=== PATIENT | female | born 1995 | race African-American/Black ===

== ENCOUNTER 2019-12-03 09:50 | Inpatient (IN) | payer MEDICAID ==
[2019-12-03 10:52] LABS: APPEARANCE,URINE CLOUDY; BILIRUBIN,URINE NEGATIVE (NEGATIVE); COLOR,URINE YELLOW; GLUCOSE, URINE NEGATIVE (NEGATIVE); KETONES,URINE NEGATIVE (NEGATIVE); LEUKOCYTE ESTERASE,URINE MODERATE (NEGATIVE); NITRITE,URINE NEGATIVE (NEGATIVE); PROTEIN,URINE 30 mg/dL (NEGATIVE); URINE SPECIFIC GRAVITY 1.021; UROBILINOGEN,URINE NEGATIVE mg/dL (<2.0)
[2019-12-03 11:21] LABS: URINE AMPHETAMINES SCREEN NEGATIVE; URINE BARBITURATES SCREEN NEGATIVE; URINE BENZODIAZEPINES SCREEN NEGATIVE; URINE COCAINE SCREEN NEGATIVE; URINE MARIJUANA (THC) SCREEN NEGATIVE; URINE METHADONE SCREEN NEGATIVE; URINE PHENCYCLIDINE SCREEN NEGATIVE
--- NOTE | 2019-12-03 12:45 | Admission Physical ---
Datetime Report Generated by CPN: 12/03/2019 12:45 CURRENT ADMISSION Chief Complaint: Uterine Contractions Indication for Induction: Not Applicable Admit Impression : Term, Intrauterine ; Active Labor Admit Plan: Admit to Unit; Initiate Labor Protocol ALLERGIES Medication Allergies: Yes Medication Allergies: Penicillins (12/03/2019) Latex: No Latex Allergies OBSTETRICAL HISTORY EDC: 12/07/2019 00:00 : 2 Para: 1 Term: 1 : 0 SAB: 0 IAB: 0 Ectopic: 0 Livin Cesareans: 0 VBACs: 0 Multiple Births: 0 Gestational Diabetes: No Rh Sensitization: No Incompetent Cervix: No BECKY: No Infertility: No ART Treatment: No Uterine Anomaly: No IUGR: No Hx Previous C/S: No Macrosomia: No Hx Loss/Stillborn: No PIH: No Hx : No Placenta Previa/Abruption: No Depression/PP Depression: No PTL/PROM: No Post Hemorrhage: No Current Procedures: Ultrasound Obstetrical History Comments: 08/2018 , no epdiural, girl G2- Current SEE RECORDS Alcohol: No Marijuana : No Cocaine: No Other Illicit Drugs: No Cigarettes: Never Smoker. [id number] MEDICAL HISTORY Diabetes: No Blood Transfusion: No Pulmonary Disease (Asthma, TB): No Breast Disease: No Hypertension: No Fiberglass Technician Surgery: No Heart Disease: No Hosp/Surgery: Yes Autoimmune Disorder: No Anesthetic Complications: No Kidney Disease: No Abnormal Pap Smear: Yes Neuro/Epilepsy: No Psychiatric Disorders: No Other Medical Diseases: No Hepatitis/Liver Disease: No Significant Family History: No Varicosities/Phlebitis: No Trauma/Violence : No Thyroid Dysfunction: No Medical History Comments: Was suppose to go back for a 2nd pap smear but got and never got tested again. INFECTIOUS HISTORY Gonorrhea: No Genital Herpes: No Chlamydia: No Tuberculosis: No Syphilis: No Hepatitis: No HIV/AIDS Exposure: No Rash or Viral Illness: No HPV: No PHYSICAL EXAM General: Normal HEENT: Normal Neurologic: Normal Thyroid: Deferred Heart: Normal Lungs: Normal Breast: Deferred Back: Normal Abdomen: Normal Genitourinary Exam: Deferred Extremities: Normal DTRs: Normal Pelvic Type: Adequate Vital Signs: Reviewed VAGINAL EXAM Dilatation: 5 Effacement: 100 Station: -1 MEMBRANES Membranes: Intact FETUS A EGA: 39.3 Monitoring: External US FHR- Baseline: 130 Variability: Moderate 6-25bpm Accelerations: 15X15 FHR Category: Category I Presentation: Vertex Admit Comment: Closely-spaced pregnancies records on chart Plan admit, pain management. Anticipate Proven for 7lbs 10 oz PLANS FOR LABOR AND DELIVERY Labor and Delivery: None Pain Management: None Feeding Preference: Breast Benefit of Breast Feed Discussed: Yes Circumcision: Yes INFORMED CONSENT Assignment: Corin Fisher MD Signature: with User ID: [email or web address] : with User ID: [email or web address] : I personally evaluated and examined the patient in conjunction with the MLP and agree with the assessment, treatment plan and disposition.
[2019-12-03] MEDS ORDERED: RINGERS SOLUTION,LACTATED 1,000 ML IV ONE (12:58)
[2019-12-03] MEDS ORDERED: RINGERS SOLUTION,LACTATED 1,000 ML IV PRN (12:58)
[2019-12-03] MEDS ORDERED: OXYTOCIN/0.9 % SODIUM CHLORIDE 30 UNIT/500 ML RTUINJ ONE (13:24)
[2019-12-03] MEDS ORDERED: LIDOCAINE 1% INJ-PF (10 MG/ML) 30 ML SDV ONE (13:24)
[2019-12-03] MEDS ORDERED: OXYTOCIN 10 UNIT/ML VIAL ONE (13:24)
[2019-12-03] MEDS ORDERED: MISOPROSTOL 0.2 MG TABLET ONE (13:24)
[2019-12-03 14:10] LABS: ABSOLUTE LYMPHOCYTES (AUTO) 0.8 10^3/uL (0.5-4.7); ABSOLUTE MONOCYTES (AUTO) 0.4 10^3/uL (0.1-1.4); ABSOLUTE NEUT (AUTO) 13.2 10^3/uL (1.7-8.2); BASOPHILS % (AUTO) 0.2 % (0-2); HEMATOCRIT 38.7 % (36.0-47.0); HEMOGLOBIN 13.2 g/dL (12.0-15.5); LYMPHOCYTES % (AUTO) 5.7 % (13-45); MEAN CORPUSCULAR HEMOGLOBIN 29.5 pg (27.0-33.4); MEAN CORPUSCULAR HGB CONC 34.1 g/dL (32.0-36.0); MEAN CORPUSCULAR VOLUME 86 fl (80-97); MONOCYTES % (AUTO) 2.9 % (3-13); PLATELET COUNT 152 10^3/uL (150-450); RED BLOOD COUNT 4.48 10^6/uL (3.72-5.28); RED CELL DISTRIBUTION WIDTH 14.6 % (11.5-14.0); SEGMENTED NEUTROPHILS % (AUTO) 91.2 % (42-78); TOTAL CELLS COUNTED % (AUTO) 100 %; WHITE BLOOD COUNT 14.5 10^3/uL (4.0-10.5)
[2019-12-03] MEDS ORDERED: DIPHENHYDRAMINE HCL 25 MG CAPSULE PO PRN (18:49)
[2019-12-03] MEDS ORDERED: DIBUCAINE 1% OINTMENT 28 GM TP PRN (18:49)
[2019-12-03] MEDS ORDERED: MEASLES,MUMPS&RUBELLA VACC/PF 0.5 ML VIAL SUBCUT PRN (18:49)
[2019-12-03] MEDS ORDERED: ACETAMINOPHEN 650 MG SUPP.RECT PR PRN (18:49)
[2019-12-03] MEDS ORDERED: ZOLPIDEM TARTRATE 5 MG TABLET PO PRN (18:49)
[2019-12-03] MEDS ORDERED: PROMETHAZINE HCL 25 MG SUPP.RECT PR PRN (18:49)
[2019-12-03] MEDS ORDERED: PSEUDOEPHEDRINE HCL 30 MG TABLET PO PRN (18:49)
[2019-12-03] MEDS ORDERED: PROMETHAZINE HCL INJ 25 MG/1 ML VIAL IV PRN (18:49)
[2019-12-03] MEDS ORDERED: DIPH/PERTUSS(ACELL)/TETANUS VAC/PF 0.5 ML SYR (>=10YO) IM PRN (18:49)
[2019-12-03] MEDS ORDERED: MAGNESIUM HYDROXIDE SUSP 30 ML UDCUP PO PRN (18:49)
[2019-12-03] MEDS ORDERED: GLYCERIN/WITCH HAZEL LEAF 1 EACH MED..WIPE TP PRN (18:49)
[2019-12-03] MEDS ORDERED: ACETAMINOPHEN WITH CODEINE #3 TABLET PO PRN ×2 (18:49)
[2019-12-03] MEDS ORDERED: NA PHOS,M-B/NA PHOS,DI-BA (ADULT) 133 ML ENEMA PR PRN (18:49)
[2019-12-03] MEDS ORDERED: PROMETHAZINE HCL 25 MG TABLET PO PRN (18:49)
[2019-12-03] MEDS ORDERED: OXYTOCIN/0.9 % SODIUM CHLORIDE 30 UNIT/500 ML RTUINJ IV PRN (18:49)
[2019-12-03] MEDS ORDERED: BENZOCAINE/MENTHOL AEROSOL SPRAY 56 ML TOP PRN (18:49)
[2019-12-03] MEDS ORDERED: METHYLERGONOVINE MALEATE INJ/PF 0.2 MG/1 ML AMPULE IM ONE (19:05)
[2019-12-03] MEDS ORDERED: METHYLERGONOVINE MALEATE INJ/PF 0.2 MG/1 ML AMPULE ONE (19:14)
--- NOTE | 2019-12-03 21:15 | Delivery Summary ---
Del Sum A-C Datetime Report Generated by CPN: 12/03/2019 21:15 DELIVERY PERSONNEL DELIVERY PERSONNEL: [id number] Delivery Doctor:: Soo Vasquez CNM Nurse Edge Bonder Certified:: Soo Vasquez CNM Labor and Delivery Nurse:: Irma Khanna RNmedical surgery nurse Nurse:: CELESTINO Tate Switchboard Wirer/DAILY RELEASE AND DUPE PRINTER: [facility], ENGINE TURNER MATERNAL INFORMATION Delivery Anesthesia: None Medications After Delivery: Pitocin Bolus-Please Comment; Pitocin 30 Units in 500ml NS/D5W Delivery QBL: 200 Maternal Complications: None Provider Comments: Called to room 1-patient complete and at +2. Patient positioned with stirrups and instructed to push with contractions. of live male in vertex CRISTOPHER at 1825. Compound right hand reduced. Nuchal cord x1 reduced. Spontaneous respirations and cry. 3 vessel cord. Apgars 8-9. Cord clamped x2 after 2min delay, then cut by FOB. Placenta, membranes, and cord expelled at 1831, Garcia presentation, intact. Perineal tear repaired as above. Patient tolerated procedure well. LABOR SUMMARY EDC: 12/07/2019 00:00 No. Babies in Womb: 1 Attempted: No Labor Anesthesia: None LABOR INFORMATION Reason for Induction: Not Applicable Onset of Labor: 12/03/2019 14:23 Complete Dilatation: 12/03/2019 18:16 Oxytocin: N/A Group B Beta Strep: negative Steroids Given: None Reason Steroids Not Administered: Not Applicable MEMBRANES Membranes Rupture Method: Artificial Rupture of Membranes: 12/03/2019 16:33 Length of Rupture (hr): 1.87 Amniotic Fluid Color: Clear Amniotic Fluid Amount: Scant Amniotic Fluid Odor: Normal STAGES OF LABOR Stage 1 hr: 3 Stage 1 min: 53 Stage 2 hr: 0 Stage 2 min: 9 Stage 3 hr: 0 Stage 3 min: 6 Total Time in Labor hr: 4 Total Time in Labor min: 8 VAGINAL DELIVERY Episiotomy: None Laceration #1: Perineal Laceration Extension #1: First Degree Laceration Repair: Yes Laceration Repair Note: Single interrupted stitch done in perineal tear with 3-0 Chromic Sponge Count Correct: N/A Sharps Count Correct: Yes CSECTION DELIVERY Primary Indication: N/A Secondary Indication: N/A CSection Incidence: N/A Labor: N/A Elective: N/A CSection Incision: N/A BABY A INFORMATION Delivery Date/Time: 12/03/2019 18:25 Method of Delivery: Vaginal Nurse Controlled Delivery: No Born in Route : No : N/A Forceps: N/A Vacuum Extraction: N/A Shoulder Dystocia : No PRESENTATION/POSITION BABY A Presentation: Cephalic Cephalic Presentation: Vertex Vertex Position: Right Occipital Anterior Breech Presentation: N/A PLACENTA INFORMATION BABY A Placenta Delivery Time : 12/03/2019 18:31 Placenta Method of Delivery: Spontaneous Placenta Status: Delivered SCORES BABY A Heart Rate 1 min: >100 bpm Resp Effort 1 min: Good Cry Reflex Irritability 1 min: Cough or Sneeze or Pulls Away Muscle Tone 1 min: Active Motion Color 1 min: Blue/Pale Resuscitation Effort 1 min: Tactile Stimulation SCORE 1 MIN: 8 Heart Rate 5 min: >100 bpm Resp Effort 5 min: Good Cry Reflex Irritability 5 min: Cough or Sneeze or Pulls Away Muscle Tone 5 min: Active Motion Color 5 min: Body Selby, Extremities Blue Resuscitation Effort 5 min: N/A SCORE 5 MIN: 9 Resuscitation Effort 10 min: N/A INFORMATION BABY A Gestational Age at Delivery: 38.3 Gestational Status: Early Term- 37- 38.6 Weeks Outcome : Liveborn Infant Condition : Stable Sex: Male IDENTIFICATION BABY A Verification Date/Time: 12/03/2019 19:24 ID Band Number: [id number] Mother's Name Verified: Yes RN Verifying Infant: AJocelyn Khanna RN Additional Verifying Personnel: Marcello Lane RN WEIGHT/LENGTH BABY A Birthweight (gm): 3460 Weight (lb): 7 Weight (oz): 10 Length (in): 21.00 Length (cm): 53.34 CORD INFORMATION BABY A No. Cord Vessels: 3 Nuchal Cord : Around Neck x1, Loose Cord Blood Taken: Yes-For Storage (Mom's Blood type +) Suction: None ASSESSMENT BABY A Infant Complications: None Physical Findings at Delivery: Within Normal Limits Respirations: Appears Normal Skin to Skin: Yes Crm Marketing Specialist/ALS Called : No Infant Care By: Anjana Khanna RN Transferred To: Remains with Mother SIGNATURES Assignment: Corin Fisher MD Signature: with User ID: [email or web address] : with User ID: [email or web address] : I personally evaluated and examined the patient in conjunction with the MLP and agree with the assessment, treatment plan and disposition.
--- NOTE | 2019-12-03 21:15 | Birth Certificate Data ---
Cert Data Datetime Report Generated by YAZ: 12/03/2019 21:15 CERTIFICATE DATA 47a. Care: Yes (12/03/2019 10:12:Irma Khanna RN) 47b. Date of First Visit: 05/04/2019 00:00 (12/03/2019 10:12:Eva Mccurdy RN) 47c. Date of Last Visit: 12/01/2019 00:00 (12/03/2019 10:12:Eva Mccurdy RN) 47d. Number of Visits: 12 (12/03/2019 10:12:Eva Mccurdy RN) 48a. Number of Prev Live Births: 1 (12/03/2019 10:12:Irma Khanna RN) 48b. Now Livin (12/03/2019 10:12:Irma Khanna RN) 48c. Live Births Now : 0 (12/03/2019 10:12:QS system process) 48d. Date of Last Live : 09/02/2018 00:00 (12/03/2019 10:12:Irma Khanna RN) 48e. Losses: 0 (12/03/2019 10:12:Irma Khanna RN) RISK FACTORS IN THIS 49a. Diabetes: No (12/03/2019 10:12:Irma Khanna RN) 49b. Hypertension: No (12/03/2019 10:12:Irma Khanna RN) 49c. Previous Births: 0 (12/03/2019 10:12:Irma Khanna RN) 49d. Stillborns: No (12/03/2019 10:12:Irma Khanna RN) 49d. IUGR: No (12/03/2019 10:12:Irma Khanna RN) 49e. Infertility Treatment: No (12/03/2019 10:12:Irma Khanna RN) 49f. Previous Cesareans: 0 (12/03/2019 10:12:Irma Khanna RN) Mother's Height 50b. Height Inches: 67 (12/03/2019 10:02:QS system process) Mother's Weight 51a. Pre- Weight (lbs): 180 (12/03/2019 10:12:Irma Khanna RN) 51b. Weight at Delivery (lbs): 209 (12/03/2019 10:02:QS system process) 52. Dt Last Normal Menses Began: 03/02/2019 00:00 (12/03/2019 10:12:Irma Khanna RN) Infections Present/Treated 53a. Gonorrhea: No (12/03/2019 10:12:Irma Khanna RN) Results this Hospital Visit : Negative (12/03/2019 10:12:CELESTINO Peters) 53b. Syphilis: No (12/03/2019 10:12:Imra Khanna RN) 53c. Chlamydia: No (12/03/2019 10:12:Irma Khanna RN) Results this Hospital Visit: Negative (12/03/2019 10:12:CELESTINO Peters) 53d. Hepatitis B: No (12/03/2019 10:12:Irma Khanna RN) Results this Hospital Visit: Negative (12/03/2019 10:12:Irma Khanna RN) 53e. Hepatitis C: Negative (12/03/2019 10:12:Eva Mccurdy RN) 53h. Mother Tested for HBsAG: Yes (12/03/2019 10:12:CELESTINO Peters) 53i. Date Tested: 06/11/2019 00:00 (12/03/2019 10:12:CELESTINO Peters) 53j. Test Result: Negative (12/03/2019 10:12:Irma Khanna RN) Obstetric Procedures 54a, b, c. Obstetric Procedures: Ultrasound (12/03/2019 10:12:Irma Khanna RN) Cigarette Smoking Cigarette Smoking: Never Smoker. [id number] (12/03/2019 10:12:Irma Khanna RN) 55a. 3 Months Before Preg - Ci (12/03/2019 10:12:Irma Khanna RN) 55a. Packs: 0 (12/03/2019 10:12:Irma Khanna RN) 55b. 1st Trimester of Preg- Ci (12/03/2019 10:12:Irma Khanna RN) 55b. Packs: 0 (12/03/2019 10:12:Irma Khanna RN) 55c. 2nd Trimester of Preg- Ci (12/03/2019 10:12:Irma Khanna RN) 55c. Packs: 0 (12/03/2019 10:12:Irma Khanna RN) 55d. 3rd Trimester of Preg- Ci (12/03/2019 10:12:Irma Khanna RN) 55d. Packs: 0 (12/03/2019 10:12:Irma Khanna RN) Onset of Labor 56a. PROM >12 Hrs: 1.87 (12/03/2019 10:12:QS system process) 56b. Precipitous Labor <3 Hrs: 4 (12/03/2019 10:12:QS system process) 56c. Prolonged Labor > 20 Hrs: 4 (12/03/2019 10:12:QS system process) 57a. Induction of Labor: N/A (12/03/2019 10:12:Nasrin Camp, [facility]) 57c. Non-Vertex Presentation A: Vertex (12/03/2019 10:12:Nasrin Jason [facility]) 57d. Steroids - Lung Mat: None (12/03/2019 10:12:Soo Vasquez CNM) 57d. Steroids - Lung Mat: Not Applicable (12/03/2019 10:12:Nasrin Jason [facility]) 57f. Mat [place] or Temp >100.4: 98.4 (12/03/2019 10:12:Jay Acosta RN) 57g. Moderate/Heavy Meconium: Clear (12/03/2019 16:33:Irma Khanna RN) 57h. Intolerance of Labor: N/A (12/03/2019 10:12:Nasrin Jason [facility]) : N/A (12/03/2019 10:12:Nasrin Jason [facility]) 57i. Epidural/Spinal Anesthesia: None (12/03/2019 10:12:Nasrin Jason [facility]) Method of Delivery 58a. Forceps - Unsuccessful A: N/A (12/03/2019 10:12:Nasrin Jason [facility]) 58b. Vacuum - Unsuccessful A: N/A (12/03/2019 10:12:Nasrin Jason, [facility]) 58c. Presentation at 58c. Presentation at - A : Vertex (12/03/2019 10:12:[facility], [facility]) 58c. Presentation at - A : N/A (12/03/2019 10:12:[facility]) 58c. Presentation at - A : Cephalic (12/03/2019 10:06:Irma Khanna, RN) Final Route and Method of Del 58d. Baby A Route/Delivery: Vaginal (12/03/2019 10:12:[facility]) 58e. Trial of Labor Attempted: No (12/03/2019 10:12:[facility]) 58e. Trial of Labor Attempted A: N/A (12/03/2019 10:12:[facility]) Maternal Morbidity 59b. 3rd or 4th Degree Lacs: Perineal (12/03/2019 10:12:Soo Vasquez, CNM) Birthweight Baby A: 3460 (12/03/2019 10:12:Jay Acosta RN) 60a. Pounds : 7 (12/03/2019 10:12:QS system process) 60b. Ounces: 10 (12/03/2019 10:12:QS system process) 61. GA at Delivery Baby A: 38.3 (12/03/2019 10:12:[facility], [facility]) : Early Term- 37- 38.6 Weeks (12/03/2019 10:12:QS system process) 62a. 5 Minute Baby A: 9 (12/03/2019 10:12:QS system process)
[2019-12-03] MEDS ORDERED: METHYLERGONOVINE MALEATE 0.2 MG TABLET PO SCH (22:00)
[2019-12-03] MEDS: METHYLERGONOVINE MALEATE 0.2 MG TABLET PO SCH (23:47)
[2019-12-03] MEDS: IBUPROFEN 800 MG TABLET PO SCH (23:47)
[2019-12-03] MEDS: FAMOTIDINE 20 MG TABLET PO SCH (23:50)
[2019-12-04] MEDS: METHYLERGONOVINE MALEATE 0.2 MG TABLET PO SCH ×4 (04:18→21:59)
[2019-12-04] MEDS: IBUPROFEN 800 MG TABLET PO SCH ×3 (06:42→21:59)
[2019-12-04 08:37] LABS: HEMATOCRIT 35.2 % (36.0-47.0); HEMOGLOBIN 11.7 g/dL (12.0-15.5); MEAN CORPUSCULAR HGB CONC 33.2 g/dL (32.0-36.0); MEAN CORPUSCULAR VOLUME 87 fl (80-97); PLATELET COUNT 138 10^3/uL (150-450); RED BLOOD COUNT 4.04 10^6/uL (3.72-5.28); RED CELL DISTRIBUTION WIDTH 14.4 % (11.5-14.0); WHITE BLOOD COUNT 12.4 10^3/uL (4.0-10.5)
[2019-12-04] MEDS: DOCUSATE SODIUM 100 MG CAPSULE PO SCH ×2 (09:49→17:29)
[2019-12-04] MEDS: FERROUS SULFATE 325 MG TABLET PO SCH ×2 (09:49→17:29)
[2019-12-04] MEDS: FAMOTIDINE 20 MG TABLET PO SCH ×2 (09:49→21:59)
[2019-12-04] MEDS: PRENATAL VITAMIN W DHA CAPSULE PO SCH (09:49)
[2019-12-04] MEDS: SENNOSIDES/DOCUSATE 8.6-50 MG 1 EACH TABLET PO SCH (09:49)
--- NOTE | 2019-12-04 12:27 | PDOC PROGRESS REPORT ---
Subjective-OB Progress Note for:: 12/04/19 Subjective: Pt doing well, no concerns. Bleeding normal, reg diet and voids w/o difficulty. Physical Exam (OB) Vital Signs: Temp Pulse Resp BP Pulse Ox 98.1 F 92 18 114/73 100 12/04/19 11:20 12/04/19 11:20 12/04/19 11:20 12/04/19 11:20 12/04/19 07:50 Intake & Output 12/03/19 12/04/19 12/05/19 06:59 06:59 06:59 Output Total 350 120 Balance -350 -120 Weight 94.9 kg - PIH/Pre-Eclampsia Clonus: Negative Headache: Absent Epigastric Pain: No Visual Changes: No - Maternal Morbidity 59. Maternal Morbidity (serious complications experinced by the mother associated with labor and delivery: None of the above - Lochia Lochia Amount: Small 10-25 ml Lochia Color: Rubra/Red - Abdomen Description: Tender Hernia Present: No Fundal Description: Firm, Midline Fundal Height: u/u - u/2 Objective-Diagnostic Laboratory: 12/04/19 07:25 12/03/19 12/03/19 12/04/19 14:00 14:00 07:25 WBC 14.5 H 12.4 H RBC 4.48 4.04 Hgb 13.2 11.7 L Hct 38.7 35.2 L MCV 86 87 MCH 29.5 29.0 MCHC 34.1 33.2 RDW 14.6 H 14.4 H Plt Count 152 138 L Seg Neutrophils % 91.2 H Blood Type B POSITIVE Antibody Screen NEGATIVE Assessment and Plan(PN) - Assessment and Plan (1) First degree perineal laceration during delivery Is this a current diagnosis for this admission?: Yes (2) Active labor at term Is this a current diagnosis for this admission?: Yes (3) (normal spontaneous vaginal delivery) Is this a current diagnosis for this admission?: Yes - Time Spent with Patient Time with patient: Less than 15 minutes Medications reviewed and adjusted accordingly: Yes - Disposition Anticipated Discharge Disposition: Home, Self Care Anticipated Discharge Timeframe: within 48 hours
[2019-12-05] MEDS: IBUPROFEN 800 MG TABLET PO SCH (05:19)
--- NOTE | 2019-12-05 08:40 | PDOC DISCHARGE SUMMARY ---
Impression - Admit/DC Date/PCP Admission Date/Primary Care Provider: 12/03/19 12:07 ALLISON GARSIA MD Discharge Date: 12/05/19 - Discharge Diagnosis (1) First degree perineal laceration during delivery Is this a current diagnosis for this admission?: Yes (2) Active labor at term Is this a current diagnosis for this admission?: Yes (3) (normal spontaneous vaginal delivery) Is this a current diagnosis for this admission?: Yes - Additional Information Resuscitation Status: Full Code Discharge Diet: Regular Discharge Activity: Balance Activity w/Rest, Pelvic Rest Referrals: ALLISON GARSIA MD [Primary Care Provider] - Prescriptions: Ibuprofen [Motrin 800 mg Tablet] 800 mg PO Q8HP PRN #60 tablet PRN Reason: Home Medications: Pnv No.95/Ferrous Fum/Folic AC [ Caplet] 1 each PO DAILY 12/03/19 Ibuprofen [Motrin 800 mg Tablet] 800 mg PO Q8HP PRN #60 tablet 12/05/19 HPI Gestational Age: 39.3 Reason(s) for Admission: Onset of Labor Procedures: NST Intrapartum Procedure(s): Spontaneous Vaginal Delivery Complication(s): Laceration-Perineal, Hemorrhage-Uterine Atony Laceration-Degree: 1st Complication(s) Note: given methergine Hospital Course 59. Maternal Morbidity (serious complications experinced by the mother associated with labor and delivery: None of the above Results Laboratory Results: WBC 12.4 10^3/uL (4.0-10.5) H 12/04/19 07:25 RBC 4.04 10^6/uL (3.72-5.28) 12/04/19 07:25 Hgb 11.7 g/dL (12.0-15.5) L 12/04/19 07:25 Hct 35.2 % (36.0-47.0) L 12/04/19 07:25 MCV 87 fl (80-97) 12/04/19 07:25 MCH 29.0 pg (27.0-33.4) 12/04/19 07:25 MCHC 33.2 g/dL (32.0-36.0) 12/04/19 07:25 RDW 14.4 % (11.5-14.0) H 12/04/19 07:25 Plt Count 138 10^3/uL (150-450) L 12/04/19 07:25 Lymph % (Auto) 5.7 % (13-45) L 12/03/19 14:00 Mccone % (Auto) 2.9 % (3-13) L 12/03/19 14:00 Eos % (Auto) 0.0 % (0-6) 12/03/19 14:00 Baso % (Auto) 0.2 % (0-2) 12/03/19 14:00 Absolute Neuts (auto) 13.2 10^3/uL (1.7-8.2) H 12/03/19 14:00 Absolute Lymphs (auto) 0.8 10^3/uL (0.5-4.7) 12/03/19 14:00 Absolute Monos (auto) 0.4 10^3/uL (0.1-1.4) 12/03/19 14:00 Absolute Eos (auto) 0.0 10^3/uL (0.0-0.6) 12/03/19 14:00 Absolute Basos (auto) 0.0 10^3/uL (0.0-0.2) 12/03/19 14:00 Seg Neutrophils % 91.2 % (42-78) H 12/03/19 14:00 Urine Color YELLOW 12/03/19 09:58 Urine Appearance CLOUDY 12/03/19 09:58 Urine pH 6.0 (5.0-9.0) 12/03/19 09:58 Ur Specific [place] 1.021 12/03/19 09:58 Urine Protein 30 mg/dL (NEGATIVE) H 12/03/19 09:58 Urine Glucose (UA) NEGATIVE mg/dL (NEGATIVE) 12/03/19 09:58 Urine Ketones NEGATIVE mg/dL (NEGATIVE) 12/03/19 09:58 Urine Blood NEGATIVE (NEGATIVE) 12/03/19 09:58 Urine Nitrite NEGATIVE (NEGATIVE) 12/03/19 09:58 Urine Bilirubin NEGATIVE (NEGATIVE) 12/03/19 09:58 Urine Urobilinogen NEGATIVE mg/dL (<2.0) 12/03/19 09:58 Ur Leukocyte Esterase MODERATE (NEGATIVE) H 12/03/19 09:58 Urine Ascorbic Acid 40 (NEGATIVE) H 12/03/19 09:58 Urine Opiates Screen NEGATIVE 12/03/19 09:58 Urine Methadone Screen NEGATIVE 12/03/19 09:58 Ur Barbiturates Screen NEGATIVE 12/03/19 09:58 Ur Phencyclidine Scrn NEGATIVE 12/03/19 09:58 Ur Amphetamines Screen NEGATIVE 12/03/19 09:58 U Benzodiazepines Scrn NEGATIVE 12/03/19 09:58 Urine Cocaine Screen NEGATIVE 12/03/19 09:58 U Marijuana (THC) Screen NEGATIVE 12/03/19 09:58 RPR NONREACTIVE (NONREACTIVE) 12/03/19 14:00 Blood Type B POSITIVE 12/03/19 14:00 Antibody Screen NEGATIVE 12/03/19 14:00 Plan Plan of Treatment: discharge home f/u at [facility] 4 wks Time Spent: Less than 30 Minutes
[2019-12-05] MEDS: FAMOTIDINE 20 MG TABLET PO SCH (09:48)
[2019-12-05] MEDS: FERROUS SULFATE 325 MG TABLET PO SCH (09:48)
[2019-12-05] MEDS: PRENATAL VITAMIN W DHA CAPSULE PO SCH (09:48)
[2019-12-05] MEDS: DOCUSATE SODIUM 100 MG CAPSULE PO SCH (09:48)
[2019-12-05] MEDS: SENNOSIDES/DOCUSATE 8.6-50 MG 1 EACH TABLET PO SCH (09:49)
[2019-12-05 12:30] VITALS: BP 132/69
== END 2019-12-05 12:54 | disposition home or self-care (01) | DRG 806 ==
LOC: LC 09:50 → LR 12:07 → 2S 21:38
PROVIDERS: ADMIT Obstetrics & Gynecology; ATTEND Obstetrics & Gynecology
PROC: 10E0XZZ Delivery of Products of Conception, External Approach (ICD-10-PCS; principal; 2019-12-03)
PROC: 0HQ9XZZ Repair Perineum Skin, External Approach (ICD-10-PCS; 2019-12-03)
DX: O69.81X0 Labor and delivery complicated by cord around neck, without compression, not applicable or unspecified (principal); O72.1 Other immediate postpartum hemorrhage; Z37.0 Single live birth; O32.2XX0 Maternal care for transverse and oblique lie, not applicable or unspecified; O70.0 First degree perineal laceration during delivery; Z3A.39 39 weeks gestation of pregnancy
CPT/HCPCS: 36415; 80307; 81005; 85025; 85027; 86592; 86850; 86900; 86901; 88307; J2210; J2590; J3490